=== PATIENT | female | born 1965 | race Caucasian/White ===

== ENCOUNTER 2018-08-12 12:40 | Day surgery (SDC) | payer OTHER ==
[~2018-08-12] VITALS: Ht 165.1 cm; Wt 83.0 kg
[2018-08-12] VITALS (8 sets, daily range): BP systolic 123–139; BP diastolic 73–89
[2018-08-12] MEDS ORDERED: diphenhydrAMINE 25mg capsule PO PRN (13:10)
[2018-08-12] MEDS ORDERED: normal saline 1,000 ML IV SCH (13:10)
[2018-08-12] MEDS ORDERED: midazolam 2 mg/2 ml injection ONE (13:21)
[2018-08-12] MEDS ORDERED: iohexol 350 MG/ML 50ML vial IV ONE (13:21)
[2018-08-12] MEDS ORDERED: fentaNYL/PF 50MCG/1 ML 2ML syringe ONE (13:21)
[2018-08-12] MEDS ORDERED: LIDOcaine 1% (10mg/ml)w/preservative injection 20ml MDV ONE (13:21)
[2018-08-12] MEDS ORDERED: iohexol 350MG/ML 100ml bottle IV ONE (13:22)
[2018-08-12 13:39] LABS: BASOPHILS % (AUTO) 0.3 % (0-1); EOSINOPHILS # (AUTO) 0.2 X10'3 (0-0.9); EOSINOPHILS % (AUTO) 2.5 % (0-6); HEMATOCRIT 38.2 % (35.0-45.0); HEMOGLOBIN 12.7 g/dl (12.0-16.0); LYMPHOCYTES # (AUTO) 1.5 X10'3 (1.1-4.8); LYMPHOCYTES % (AUTO) 19.9 % (21-51); MEAN CORPUSCULAR HEMOGLOBIN 28.6 PG (27.0-31.0); MEAN CORPUSCULAR HGB CONC 33.2 g/dL (33.0-36.5); MEAN CORPUSCULAR VOLUME 86.1 FL (78-98); MONOCYTES # (AUTO) 0.5 X10'3 (0-0.9); MONOCYTES % (AUTO) 6.4 % (2-12); NEUTROPHILS # (AUTO) 5.5 X10'3 (1.8-7.7); NEUTROPHILS % (AUTO) 70.9 % (42-75); PLATELET COUNT 299 X10'3 (140-440); RED BLOOD COUNT 4.44 X10'6 (4.20-5.60); RED CELL DISTRIBUTION WIDTH 14.4 % (11.5-14.5); WHITE BLOOD COUNT 7.7 X10'3 (4.5-11.0)
[2018-08-12] MEDS ORDERED: FLUT16SP2 BOTHNARES (13:46)
[2018-08-12] MEDS ORDERED: ALIR150P SQ (13:46)
[2018-08-12] MEDS ORDERED: NAPR220C15 PO (13:46)
[2018-08-12] MEDS ORDERED: CETI-102 PO (13:46)
[2018-08-12 13:47] LABS: ALBUMIN 3.6 G/DL (3.4-5.0); ANION GAP 8 (8-16); BLOOD UREA NITROGEN 16 MG/DL (7-18); BUN/CREATININE RATIO 20.8 (6.6-38.0); CHLORIDE 107 MMOL/L (99-107); CREATININE 0.77 MG/DL (0.40-0.90); GLUCOSE 83 MG/DL (70-104); MAGNESIUM 1.9 MG/DL (1.5-2.4); POTASSIUM 3.6 MMOL/L (3.5-5.1); SODIUM 142 MMOL/L (135-145); TOTAL CARBON DIOXIDE 27.2 MMOL/L (24-32); eGFR 78 ML/MIN
[2018-08-12 13:52] LABS: PROTHROMBIN TIME 10.4 SECONDS (9.0-12.0)
== END 2018-08-12 17:30 | disposition home or self-care (01) ==
LOC: SSTAY O 12:40
PROVIDERS: ATTEND Internal Medicine Cardiovascular Disease
DX: R94.30 Abnormal result of cardiovascular function study, unspecified (principal); E78.01 Familial hypercholesterolemia; Z82.49 Family history of ischemic heart disease and other diseases of the circulatory system; Z72.89 Other problems related to lifestyle; Z88.8 Allergy status to other drugs, medicaments and biological substances; Z79.899 Other long term (current) drug therapy
CPT/HCPCS: 36415; 80048; 83735; 85025; 85610; 93005; 93458; 99152; 99153; A6257; J1644; J2001; J2250; J3010; J7030; Q0163; Q9967; A4620; C1760; C1769; C1894